=== PATIENT | female | born 1950 | race Caucasian/White ===

== ENCOUNTER → 2018-03-18 | Outpatient (CLI) | payer OTHER ==
[~2018-03-18] MED LIST: ZANTAC 150MG T150 MG PO
== END ==
LOC: M.RAD 12:16
DX: M47.814 Spondylosis without myelopathy or radiculopathy, thoracic region (principal); M40.294 Other kyphosis, thoracic region; M43.8X4 Other specified deforming dorsopathies, thoracic region

== ENCOUNTER → 2018-04-13 | Outpatient (CLI) | payer OTHER | LOC: M.RAD 12:41 | DX: Z12.31 Encounter for screening mammogram for malignant neoplasm of breast (principal) ==

== ENCOUNTER → 2018-07-15 | Outpatient (CLI) | payer OTHER | LOC: M.RAD 12:55 | DX: I10 Essential (primary) hypertension (principal); M81.0 Age-related osteoporosis without current pathological fracture; F17.210 Nicotine dependence, cigarettes, uncomplicated; Z78.0 Asymptomatic menopausal state ==

== ENCOUNTER → 2019-01-31 | Outpatient (CLI) | payer OTHER | LOC: M.ULTRA 11:53 | DX: N28.1 Cyst of kidney, acquired (principal); R31.0 Gross hematuria; G89.29 Other chronic pain ==

== ENCOUNTER → 2019-04-12 | Outpatient (CLI) | payer OTHER | LOC: M.RAD 10:36 | DX: Z12.31 Encounter for screening mammogram for malignant neoplasm of breast (principal) ==

== ENCOUNTER 2019-07-09 12:50 | Emergency (ER) | payer OTHER ==
[~2019-07-09] VITALS: Ht 149.9 cm; Wt 62.1 kg
[2019-07-09] MEDS ORDERED: ATENOLOL 50MG T50 M1 PO (13:05)
[2019-07-09] MEDS ORDERED: CRESTOR10 MG PO (13:05)
[2019-07-09] MEDS ORDERED: ALENDRONATE SOD35 MG PO (13:06)
[2019-07-09] MEDS ORDERED: BREO ELLIPTA 11 EACH PO (13:06)
[2019-07-09] MEDS ORDERED: ALLERGY MEDICAT25 MG PO (13:06)
[2019-07-09] MEDS ORDERED: GARLIC1000 MG PO (13:07)
[2019-07-09] MEDS ORDERED: APPLE CIDER VI300 MG PO (13:07)
[2019-07-09] MEDS ORDERED: BIOTIN5000 MCG PO (13:07)
[2019-07-09] MEDS ORDERED: CENTRUM SILVER1 EAC4 PO (13:07)
[2019-07-09] MEDS ORDERED: KLOR-CON 1010 MEQ PO (13:07)
[2019-07-09] MEDS ORDERED: TUMERSAID TABL1 EACH PO (13:08)
[2019-07-09] MEDS ORDERED: OMEGA-31000 M1 PO (13:08)
[2019-07-09] MEDS ORDERED: HAIR, SKIN & N1 EAC3 PO (13:08)
[2019-07-09] MEDS ORDERED: ASPIRIN81 M2 PO (13:08)
[2019-07-09 13:51] LABS: ANION GAP 7 mmol/L (7-16); BUN 21 mg/dL (7-18); CALCIUM 9.8 mg/dL (8.5-10.1); CHLORIDE 98 mmol/L (98-107); CO2 31 mmol/L (21-32); GLUCOSE 117 mg/dL (70-99); HEMATOCRIT 38.6 % (37.0-47.0); HEMOGLOBIN 13.7 gm/dL (12.0-15.0); LYMPHOCYTES 29.3 %; MCH 32.9 pg (26.0-34.0); MCHC 35.4 g/dL (28.0-37.0); MCV 92.9 fL (80.0-100.0); MPV 7.6 fl. (7.2-11.1); PLATELET COUNT* 236 thou/uL (150-400); POLYS 61.3 %; POTASSIUM 3.8 mmol/L (3.5-5.1); RBC 4.16 mil/uL (4.20-5.00); RDW-CV 14.7 % (10.5-14.5); SODIUM 136 mmol/L (136-145); WBC 8.2 thou/uL (4.0-11.0)
[2019-07-09 13:52] LABS: ABSOLUTE BASOPHILS 0.1 thou/uL (0.0-0.2); ABSOLUTE EOSINOPHILS 0.1 thou/uL (0.0-0.7); ABSOLUTE LYMPHOCYTES 2.4 thou/uL (0.8-5.3); ABSOLUTE MONOCYTES 0.6 thou/uL (0.0-1.2); BASOPHILS 0.7 %; EOSINOPHILS 1.2 %; MONOCYTES 7.5 %; NUCLEATED RBCS 0 /100WBC
[2019-07-09 14:00] LABS: ALBUMIN 3.7 g/dL (3.4-5.0); ALKALINE PHOSPHATASE 74 U/L (46-116); SGOT 19 U/L (15-37); SGPT 37 U/L (30-65); TOTAL BILIRUBIN 0.4 mg/dL (<0.1-1.0); TOTAL PROTEIN 7.5 g/dL (6.4-8.2); TROPONIN-I LEVEL <0.06 ng/mL (<0.06)
[2019-07-09 14:19] LABS: URINE BILIRUBIN NEGATIVE (Negative); URINE BLOOD NEGATIVE (Negative); URINE CLARITY CLEAR; URINE COLOR YELLOW; URINE GLUCOSE-RANDOM NEGATIVE (Negative); URINE KETONES NEGATIVE (Negative); URINE LEUKOCYTES-REFLEX NEGATIVE (Negative); URINE NITRITE-REFLEX NEGATIVE (Negative); URINE PROTEIN NEGATIVE (Negative); URINE UROBILINOGEN 0.2 E.U./dl (0.2-1.0)
[2019-07-09] MEDS ORDERED: TRANSDERM-SCOP1 EACH TRANSDERM (16:23)
[2019-07-09] MEDS ORDERED: ONDANSETRON HCL4 M2 PO (16:23)
[2019-07-09 16:32] VITALS: BP 129/65
--- NOTE | 2019-07-10 10:42 | EKG ---
[place] [address] ELECTROCARDIOGRAM REPORT Name: BERNA RODRIGUEZ Room: [facility]#: [id number] Admission: 07/09/19 Attend Phys: Discharge: 07/09/19 Date of : 48 Report #: [id number] THIS REPORT FOR: //name// [facility] ED Test Date: 2019-07-09 Test Time: 13:19:12 Pat Name: BERNA RODRIGUEZ Department: Room: Gender: F [employer]: SHERYL : 1950 Requested By: Angie Gordon Order Number: [id number] MD: Ashok Anderson Measurements Intervals [place] Rate: 63 P: 65 NV: 164 QRS: 56 QRSD: 88 T: 83 QT: 413 QTc: 423 Interpretive Statements Sinus rhythm Compared to ECG 05/26/2017 16:08:47 No significant changes Electronically Signed On 07-10-2019 10:42:25 CDT by Ashok Anderson [email or web address] <ELECTRONICALLY SIGNED> By: Ashok Anderson MD, [facility] 07/10/19 1042 1319 1319 Ashok Anderson MD, FACC /EPI
== END 2019-07-09 16:30 | disposition home or self-care (01) ==
LOC: M.ERS 12:50
PROVIDERS: Nurse Practitioner Family
DX: H81.10 Benign paroxysmal vertigo, unspecified ear (principal); R11.2 Nausea with vomiting, unspecified; I10 Essential (primary) hypertension; E78.5 Hyperlipidemia, unspecified; K21.9 Gastro-esophageal reflux disease without esophagitis; J44.9 Chronic obstructive pulmonary disease, unspecified; F17.210 Nicotine dependence, cigarettes, uncomplicated

== ENCOUNTER → 2019-12-08 | Outpatient (CLI) | payer OTHER ==
[~2019-12-08] MED LIST changes: +ALENDRONATE SOD35 MG PO; +ALLERGY MEDICAT25 MG PO; +APPLE CIDER VI300 MG PO; +ASPIRIN81 M2 PO; +ATENOLOL 50MG T50 M1 PO; +BIOTIN5000 MCG PO; +BREO ELLIPTA 11 EACH PO; +CENTRUM SILVER1 EAC4 PO; +CRESTOR10 MG PO; +GARLIC1000 MG PO; +HAIR, SKIN & N1 EAC3 PO; +KLOR-CON 1010 MEQ PO; +OMEGA-31000 M1 PO; +ONDANSETRON HCL4 M2 PO; +TRANSDERM-SCOP1 EACH TRANSDERM; +TUMERSAID TABL1 EACH PO
== END ==
LOC: M.RAD 12:13
DX: R05 Cough (principal); R06.02 Shortness of breath; M43.24 Fusion of spine, thoracic region; M12.88 Other specific arthropathies, not elsewhere classified, other specified site; M48.54XA Collapsed vertebra, not elsewhere classified, thoracic region, initial encounter for fracture

== ENCOUNTER → 2020-04-12 | Outpatient (CLI) | payer OTHER | LOC: M.RAD 10:10 | PROVIDERS: ATTEND Family Medicine | DX: Z12.31 Encounter for screening mammogram for malignant neoplasm of breast (principal); N63.0 Unspecified lump in unspecified breast ==

== ENCOUNTER → 2021-04-16 | Outpatient (CLI) | payer OTHER | LOC: M.RAD 13:08 | PROVIDERS: ATTEND Family Medicine | DX: Z12.31 Encounter for screening mammogram for malignant neoplasm of breast (principal); N64.89 Other specified disorders of breast ==

== ENCOUNTER → 2021-08-29 | Outpatient (CLI) | payer OTHER | LOC: M.CT 10:00 → M.RAD 10:10 → M.CT 11:15 → M.RAD 11:40 | PROVIDERS: ATTEND Nurse Practitioner Family | DX: M85.88 Other specified disorders of bone density and structure, other site (principal); N28.1 Cyst of kidney, acquired; J44.9 Chronic obstructive pulmonary disease, unspecified; M81.0 Age-related osteoporosis without current pathological fracture; R93.7 Abnormal findings on diagnostic imaging of other parts of musculoskeletal system; F17.210 Nicotine dependence, cigarettes, uncomplicated ==